=== PATIENT | male | born 1950 | race African-American/Black ===

== ENCOUNTER 2017-01-19 12:34 | Inpatient (IN) | payer OTHER, MEDICARE ==
[~2017-01-19] VITALS: Ht 167.6 cm; Wt 90.4 kg
[~2017-01-19 12:34] MED LIST: AMBIEN CR12.5 MG PO; AMOXICILLIN500 M1 PO; ASCORBIC ACID100 MG PO; ASCORBIC ACID500 M3 PO; ASPIRIN325 MG PO; B COMPLETE1 EACH PO; CALCIUM 500 MG1 EACH PO; CALCIUM600 M1 PO; CATAPRES0.1 MG PO; CEFTIN500 MG PO; CIPROFLOXACIN500 M1 PO; CLEAR EYES ITCH15 ML BOTH EYES; CYANOCOBALAM1000 MCG PO; CYCLOBENZAPRINE10 MG PO; DIAZEPAM5 MG PO; DOXAZOSIN MESYLA4 MG PO; DOXEPIN HCL50 MG PO; ENDOCET 5-3251 EACH PO; GABAPENTIN100 MG PO; GLUCOPHAGE500 MG PO; KENALOG,ARISTOC80 GM TP; LANTUS 10100 UNITS/ SC; LASIX20 MG PO; LASIX40 MG PO; LIPITOR20 MG PO; MINOXIDIL2.5 MG PO; MIRALAX255 GM PO; NORCO 5/3251 TABLET PO; NORCO 7.5/321 TABLET PO; NOVOLOG 10100 UNITS/ SC; ONE DAILY1 EAC3 PO; POTASSIUM-9999 MG PO; PREDNISONE1 MG PO; PREDNISONE20 MG PO; PREDNISONE5 MG PO; PRILOSEC20 MG PO; PROBIOTIC1 EAC1 PO; PROVENTIL HFA6.7 GM IH; PROVENTIL,2.5 MG/3 M IH; TAMSULOSIN HCL0.4 MG PO; VITAMIN B-1250 MG PO; VITAMIN D31000 UNI2 PO; VITAMIN D400 UNI1 PO; VITAMIN E100 UNIT PO
[2017-01-19 14:28] LABS: CHLORIDE 108 mEq/L (99-109); POTASSIUM 4.3 mEq/L (3.7-5.4); SODIUM 138 mEq/L (136-147)
[2017-01-19 14:30] LABS: GLUCOSE 192 mg/dL (70-99)
[2017-01-19 14:31] LABS: ANION GAP 10 MEQ/L (2-14)
[2017-01-19 14:33] LABS: ALKALINE PHOSPHATASE 352 IU/L (3-129)
[2017-01-19 14:34] LABS: GFR ESTIMATE (CALCULATED) > 59 mL/min/
[2017-01-19 14:35] LABS: UREA NITROGEN (BUN) 12 mg/dL (9-23)
[2017-01-19 14:37] LABS: LIPASE 11 U/L (1.0-51.0)
[2017-01-19 14:52] LABS: ADD MIUA? YES; BILIRUBIN NEGATIVE; BLOOD NEGATIVE; COLOR AMBER ((YELLOW)); GLUCOSE (STRIP) >=500; KETONES NEGATIVE; LEUKOCYTES NEGATIVE; NITRITE NEGATIVE; PROTEIN (STRIP) NEGATIVE; SPECIFIC GRAVITY 1.031 (1.000-1.030)
[2017-01-19 14:57] LABS: AMORPHOUS URATES CRYSTALS FEW; BACTERIA RARE /HPF; CASTS PRESENT /LPF; CRYSTALS PRESENT; EPITHELIAL CELLS NONE SEEN /HPF; HYALINE CASTS 0-5 /LPF; MUCUS TRACE /LPF; RED BLOOD CELLS 0-5 /HPF (0-5); UCUL ADDED? NO; WHITE BLOOD CELLS 0-5 /HPF (0-5)
[2017-01-19 15:03] LABS: EOSINOPHIL (%) 0.3 % (0-5); HEMATOCRIT 47.6 % (38.0-50.0); IMMATURE GRANULOCYTE (%) 0.4 % (0.0-0.7); LYMPHOCYTE COUNT 1.3 K/uL (1.0-2.8); MCH 30.1 PG (29.0-34.0); MCHC 33.6 G/DL (30.0-36.0); MCV 89.5 FL (86-99); MONOCYTE (%) 5.6 % (3-12); MONOCYTE COUNT 0.6 K/uL (0-0.8); NEUTROPHIL (%) 80.5 % (45-76); NEUTROPHIL COUNT 8.2 K/uL (1.8-6.4); RBC DIS.WIDTH-CV 17.1 % (11.8-14.6); RBC DIS.WIDTH-SD 55.9 % (39-53); RED BLOOD COUNT 5.32 M/uL (4.00-5.50); WHITE BLOOD COUNT 10.2 K/uL (4.1-10.2)
[2017-01-19 15:13] LABS: MEAN PLAT.VOLUME 13.7 uM^3 (9.0-12.4); PLAT.SUFFICIENCY ADEQUATE; PLATELET COUNT 176 K/uL (156-360); USER ID VLB
[2017-01-19] MEDS ORDERED: POTASSIUM-9999 MG PO (15:59)
[2017-01-19 19:30] VITALS: BP 123/62
[2017-01-19 21:53] LABS: POINT-OF-CARE METER ID UU13113725
[2017-01-20 00:01] VITALS: BP 127/67
[2017-01-20 02:44] VITALS: BP 133/72
[2017-01-20 06:09] LABS: POINT-OF-CARE METER ID UU13113725
[2017-01-20 06:43] LABS: ALKALINE PHOSPHATASE 260 IU/L (3-129); ANION GAP 9 MEQ/L (2-14); CHLORIDE 108 MEQ/L (99-109); GFR ESTIMATE (CALCULATED) > 59 mL/min/; POTASSIUM 4.1 MEQ/L (3.7-5.4); SAMPLE HEMOLYSIS CHECK 0; SAMPLE ICTERIC CHECK 1; SAMPLE LIPEMIA CHECK 0; SODIUM 139 MEQ/L (136-147); TOTAL BILIRUBIN 3.2 MG/DL (0.0-1.0); UREA NITROGEN (BUN) 12 mg/dL (9-23)
[2017-01-20 06:45] LABS: HEMATOCRIT 44.3 % (38.0-50.0); MCH 29.6 PG (29.0-34.0); MCV 89.7 FL (86-99); MEAN PLAT.VOLUME 13.6 uM^3 (9.0-12.4); PLATELET COUNT 160 K/uL (156-360); RBC DIS.WIDTH-CV 17.2 % (11.8-14.6); RBC DIS.WIDTH-SD 56.7 % (39-53); RED BLOOD COUNT 4.94 M/uL (4.00-5.50); WHITE BLOOD COUNT 9.2 K/uL (4.1-10.2)
[2017-01-20 06:47] LABS: GLUCOSE 107 mg/dL (70-99)
[2017-01-20 08:47] VITALS: BP 137/79
[2017-01-20 11:05] LABS: INTER. NORMALIZED RATIO 1.1; PROTHROMBIN TIME 11.5 (9.2-11.2)
[2017-01-20 11:19] VITALS: BP 123/69
[2017-01-20 11:22] LABS: SALICYLATE < 1.0 MG/DL (15-30)
[2017-01-20 11:55] LABS: INTERNAL CONTROL VALID? YES; MONOSPOT (MONONUCLEOSIS SEROL) NEGATIVE
[2017-01-20 13:02] LABS: IRON 181 MCG/DL (35-150)
[2017-01-20 13:35] LABS: FERRITIN 288 NG/ML (22-322)
[2017-01-20 17:05] VITALS: BP 127/66
[2017-01-20 20:07] VITALS: BP 127/75
[2017-01-21 03:45] VITALS: BP 131/74
[2017-01-21 06:40] LABS: ALKALINE PHOSPHATASE 273 IU/L (3-129); ANION GAP 6 MEQ/L (2-14); CHLORIDE 106 MEQ/L (99-109); GFR ESTIMATE (CALCULATED) > 59 mL/min/; POTASSIUM 4.3 MEQ/L (3.7-5.4); SAMPLE HEMOLYSIS CHECK 1; SAMPLE ICTERIC CHECK 0; SAMPLE LIPEMIA CHECK 0; SODIUM 133 MEQ/L (136-147); UREA NITROGEN (BUN) 15 mg/dL (9-23)
[2017-01-21 06:45] LABS: GLUCOSE 218 mg/dL (70-99); TOTAL BILIRUBIN 2.4 MG/DL (0.0-1.0)
[2017-01-21 08:04] VITALS: BP 112/70
[2017-01-21 11:09] LABS: HBSG INDEX 0.17
[2017-01-21 11:10] LABS: ANTI-HEPATITIS A VIRUS (IGM) Nonreactive; HAV INDEX 0.34; HPCA INDEX 12.87
[2017-01-21 11:11] LABS: ANTI-HEPATITIS B CORE (IGM) Nonreactive; HBC IgM INDEX 0.27
[2017-01-21 11:25] LABS: POINT-OF-CARE METER ID UU13113725
[2017-01-21 15:43] LABS: POINT-OF-CARE METER ID UU13113725
[2017-01-21 15:57] LABS: ADD MIUA? NO; BILIRUBIN NEGATIVE; BLOOD NEGATIVE; COLOR YELLOW ((YELLOW)); KETONES NEGATIVE; LEUKOCYTES NEGATIVE; NITRITE NEGATIVE; PROTEIN (STRIP) NEGATIVE; SPECIFIC GRAVITY 1.024 (1.000-1.030)
[2017-01-21 15:58] LABS: GLUCOSE (STRIP) 500
[2017-01-21 16:07] VITALS: BP 130/69
[2017-01-21 19:37] VITALS: BP 135/73
[2017-01-21 21:09] LABS: POINT-OF-CARE METER ID UU13113725
[2017-01-22 00:01] VITALS: BP 123/71
[2017-01-22 04:29] VITALS: BP 121/62
[2017-01-22 06:36] LABS: POINT-OF-CARE METER ID UU13113725
[2017-01-22 09:29] VITALS: BP 147/67
[2017-01-22 11:27] LABS: ANTI-NUCLEAR AB SCRN/RFLX(ANA) NONREACTIVE (NONREACTIVE)
[2017-01-22 11:30] LABS: POINT-OF-CARE METER ID UU13113725
[2017-01-22 12:30] VITALS: BP 146/83
[2017-01-22 14:58] LABS: POINT-OF-CARE METER ID UU13113675
[2017-01-22 16:29] VITALS: BP 120/64
[2017-01-22 22:52] VITALS: BP 127/77
[2017-01-23 08:29] VITALS: BP 120/70
[2017-01-23 09:36] LABS: ALKALINE PHOSPHATASE 265 IU/L (3-129); ANION GAP 9 MEQ/L (2-14); CHLORIDE 103 MEQ/L (99-109); GFR ESTIMATE (CALCULATED) > 59 mL/min/; GLUCOSE 159 mg/dL (70-99); POTASSIUM 3.9 MEQ/L (3.7-5.4); SAMPLE HEMOLYSIS CHECK 0; SAMPLE ICTERIC CHECK 0; SAMPLE LIPEMIA CHECK 0; SODIUM 137 MEQ/L (136-147); TOTAL BILIRUBIN 2.2 MG/DL (0.0-1.0); UREA NITROGEN (BUN) 14 mg/dL (9-23)
[2017-01-23 10:06] LABS: HEMATOCRIT 44.6 % (38.0-50.0); MCH 32.4 PG (29.0-34.0); MCV 92.5 FL (86-99); RBC DIS.WIDTH-CV 17.1 % (11.8-14.6); RBC DIS.WIDTH-SD 57.4 % (39-53); RED BLOOD COUNT 4.82 M/uL (4.00-5.50)
[2017-01-23 10:54] LABS: PLATELET COUNT UNABLE TO REPORT K/uL (156-360); WHITE BLOOD COUNT 14.4 K/uL (4.1-10.2)
[2017-01-23 16:16] VITALS: BP 134/69
[2017-01-23 22:57] VITALS: BP 147/63
[2017-01-24 08:18] VITALS: BP 123/74
[2017-01-24 08:43] VITALS: BP 123/74
[2017-01-24 09:50] LABS: ALKALINE PHOSPHATASE 242 IU/L (3-129); ANION GAP 8 MEQ/L (2-14); CHLORIDE 103 MEQ/L (99-109); GFR ESTIMATE (CALCULATED) > 59 mL/min/; GLUCOSE 227 mg/dL (70-99); POTASSIUM 3.9 MEQ/L (3.7-5.4); SAMPLE HEMOLYSIS CHECK 1; SAMPLE ICTERIC CHECK 0; SAMPLE LIPEMIA CHECK 0; SODIUM 136 MEQ/L (136-147); UREA NITROGEN (BUN) 14 mg/dL (9-23)
[2017-01-24 10:19] LABS: HEMATOCRIT 42.9 % (38.0-50.0); MCHC 33.6 G/DL (30.0-36.0); MCV 92.3 FL (86-99); RBC DIS.WIDTH-CV 16.5 % (11.8-14.6); RBC DIS.WIDTH-SD 55.3 % (39-53); RED BLOOD COUNT 4.65 M/uL (4.00-5.50); WHITE BLOOD COUNT 8.1 K/uL (4.1-10.2)
[2017-01-24 10:42] LABS: MEAN PLAT.VOLUME 13.2 uM^3 (9.0-12.4)
[2017-01-24 10:50] LABS: PLATELET COUNT 155 K/uL (156-360)
[2017-01-24] MEDS ORDERED: OXAYDO7.5 MG PO (13:58)
[2017-01-25 09:38] LABS: HCV RNA (LOG IU/mL) 6.36 (<1.18)
== END 2017-01-24 16:21 | disposition home health service (06) | DRG 442 ==
LOC: EME 12:34 → 5EAST 15:44 → EDOF 15:44 → 5EAST 17:32
PROVIDERS: Emergency Medicine; Hospitalist; Internal Medicine
DX: B19.20 Unspecified viral hepatitis C without hepatic coma (principal); J98.11 Atelectasis; R17 Unspecified jaundice; Z93.0 Tracheostomy status; R09.02 Hypoxemia; K44.9 Diaphragmatic hernia without obstruction or gangrene; K29.70 Gastritis, unspecified, without bleeding; E11.9 Type 2 diabetes mellitus without complications; M79.7 Fibromyalgia; I10 Essential (primary) hypertension; E78.5 Hyperlipidemia, unspecified; K21.9 Gastro-esophageal reflux disease without esophagitis; L93.0 Discoid lupus erythematosus; F41.9 Anxiety disorder, unspecified; E66.9 Obesity, unspecified; Z96.659 Presence of unspecified artificial knee joint; Z79.52 Long term (current) use of systemic steroids; Z88.5 Allergy status to narcotic agent; Z87.891 Personal history of nicotine dependence
CPT/HCPCS: 71010; 74181; 80053; 80074; 81003; 82140; 82728; 82948; 83540; 83690; 84466; 85025; 85027; 85610; 86038; 86256 90; 86308; 87522 90; 88305; 88342 TC; 94799; 99281; 99285; C1726; G0480; J0456; J0696; J1170; J1650; J1815; J2405; J7050; J7512

== ENCOUNTER → 2017-04-12 | Outpatient (CLI) | payer OTHER, MEDICARE ==
[~2017-04-12] VITALS: Ht 167.6 cm; Wt 90.7 kg
[~2017-04-12] MED LIST changes: +CARDURA4 MG PO; +CYMBALTA30 MG PO; +HARVONI 90-4001 EACH PO; +LONITEN2.5 MG PO; +NOVOLOG PE100 UNITS/ SC; +OXAYDO7.5 MG PO; +TRAZODONE HCL50 MG PO
[2017-04-12 08:40] LABS: POINT-OF-CARE METER ID UU13113694
[2017-04-12 10:39] LABS: POINT-OF-CARE METER ID UU13113819
== END | disposition home or self-care (01) ==
LOC: AMB 07:43
PROVIDERS: Internal Medicine Gastroenterology
PROC: 0F904ZX Drainage of Liver, Percutaneous Endoscopic Approach, Diagnostic (ICD-10-PCS; principal; 2017-04-12)
DX: B18.2 Chronic viral hepatitis C (principal); K44.9 Diaphragmatic hernia without obstruction or gangrene; R10.11 Right upper quadrant pain; R10.13 Epigastric pain; E11.40 Type 2 diabetes mellitus with diabetic neuropathy, unspecified; I10 Essential (primary) hypertension; E78.5 Hyperlipidemia, unspecified; E66.9 Obesity, unspecified; M32.9 Systemic lupus erythematosus, unspecified; Z84.1 Family history of disorders of kidney and ureter; Z82.69 Family history of other diseases of the musculoskeletal system and connective tissue; Z96.659 Presence of unspecified artificial knee joint; Z87.891 Personal history of nicotine dependence; Z68.31 Body mass index [BMI] 31.0-31.9, adult; Z79.4 Long term (current) use of insulin; Z88.8 Allergy status to other drugs, medicaments and biological substances; Z88.5 Allergy status to narcotic agent; Z91.013 Allergy to seafood
CPT/HCPCS: 82948; 88307; 88313; 93005; C1726; J2250

== ENCOUNTER 2017-05-06 09:15 | Emergency (ER) | payer OTHER, MEDICARE ==
[~2017-05-06] VITALS: Ht 167.6 cm; Wt 96.2 kg
[2017-05-06 10:01] LABS: EOSINOPHIL (%) 2.1 % (0-5); EOSINOPHIL COUNT 0.2 K/uL (0-0.3); HEMATOCRIT 44.6 % (38.0-50.0); IMMATURE GRANULOCYTE (%) 0.6 % (0.0-0.7); IMMATURE GRANULOCYTE COUNT 0.1 K/uL; INSTRUMENT ABS NEUTROPHIL CT 3.8 K/uL; LYMPHOCYTE COUNT 3.7 K/uL (1.0-2.8); MCH 30.5 PG (29.0-34.0); MCHC 33.4 G/DL (30.0-36.0); MCV 91.4 FL (86-99); MEAN PLAT.VOLUME 11.8 uM^3 (9.0-12.4); MONOCYTE (%) 9.5 % (3-12); MONOCYTE COUNT 0.8 K/uL (0-0.8); NEUTROPHIL (%) 44.7 % (45-76); NEUTROPHIL COUNT 3.8 K/uL (1.8-6.4); PLATELET COUNT 153 K/uL (156-360); RBC DIS.WIDTH-CV 13.4 % (11.8-14.6); RBC DIS.WIDTH-SD 45.3 % (39-53); RED BLOOD COUNT 4.88 M/uL (4.00-5.50); WHITE BLOOD COUNT 8.6 K/uL (4.1-10.2)
[2017-05-06 10:11] LABS: CHLORIDE 108 mEq/L (99-109); SODIUM 135 mEq/L (136-147)
[2017-05-06 10:12] LABS: GLUCOSE 271 mg/dL (70-99)
[2017-05-06 10:14] LABS: ANION GAP 8 MEQ/L (2-14)
[2017-05-06 10:16] LABS: GFR ESTIMATE (CALCULATED) > 59 mL/min/
[2017-05-06 10:17] LABS: UREA NITROGEN (BUN) 9 mg/dL (9-23)
[2017-05-06 11:57] LABS: AMYLASE 244 IU/L (1-118)
[2017-05-06 12:07] LABS: ADD MIUA? NO; BILIRUBIN NEGATIVE; BLOOD NEGATIVE; COLOR YELLOW ((YELLOW)); GLUCOSE (STRIP) >=500; KETONES NEGATIVE; LEUKOCYTES NEGATIVE; NITRITE NEGATIVE; PROTEIN (STRIP) NEGATIVE; SPECIFIC GRAVITY 1.022 (1.000-1.030); UROBILINOGEN 0.2 MG/DL (0.2-1.0)
[2017-05-06 14:44] VITALS: BP 133/80
== END 2017-05-06 14:45 | disposition home or self-care (01) ==
LOC: EME 09:15
PROVIDERS: Emergency Medicine
DX: R47.02 Dysphasia (principal); E11.9 Type 2 diabetes mellitus without complications; M79.7 Fibromyalgia; E78.5 Hyperlipidemia, unspecified; I10 Essential (primary) hypertension; K21.9 Gastro-esophageal reflux disease without esophagitis; M32.9 Systemic lupus erythematosus, unspecified; Z96.653 Presence of artificial knee joint, bilateral; Z87.891 Personal history of nicotine dependence; Z79.4 Long term (current) use of insulin
CPT/HCPCS: 70491; 80048; 81003; 82150; 85025; 99281; 99285; J7030

== ENCOUNTER 2017-05-11 12:00 | Inpatient (IN) | payer OTHER, MEDICARE ==
[~2017-05-11] VITALS: Ht 167.6 cm; Wt 103.5 kg
[2017-05-11 13:05] LABS: ADD MIUA? NO; BILIRUBIN NEGATIVE; BLOOD NEGATIVE; COLOR YELLOW ((YELLOW)); GLUCOSE (STRIP) >=500; KETONES NEGATIVE; LEUKOCYTES NEGATIVE; NITRITE NEGATIVE; PROTEIN (STRIP) NEGATIVE; SPECIFIC GRAVITY 1.016 (1.000-1.030); UCUL ADDED? NO
[2017-05-11 13:45] LABS: HEMATOCRIT 47.3 % (38.0-50.0); MCH 30.5 PG (29.0-34.0); MCHC 33.2 G/DL (30.0-36.0); RBC DIS.WIDTH-CV 13.2 % (11.8-14.6); RED BLOOD COUNT 5.14 M/uL (4.00-5.50)
[2017-05-11 13:54] LABS: CHLORIDE 107 mEq/L (99-109); POTASSIUM 4.6 mEq/L (3.7-5.4); SODIUM 140 mEq/L (136-147)
[2017-05-11 13:56] LABS: GLUCOSE 140 mg/dL (70-99)
[2017-05-11 13:58] LABS: ANION GAP 9 MEQ/L (2-14); TOTAL BILIRUBIN 0.4 mg/dL (0.0-1.0)
[2017-05-11 14:00] LABS: ALKALINE PHOSPHATASE 82 IU/L (3-129); GFR ESTIMATE (CALCULATED) > 59 mL/min/
[2017-05-11 14:01] LABS: UREA NITROGEN (BUN) 13 mg/dL (9-23)
[2017-05-11 14:03] LABS: LIPASE 9 U/L (1.0-51.0)
[2017-05-11 14:25] LABS: MEAN PLAT.VOLUME 11.7 uM^3 (9.0-12.4); PLAT.SUFFICIENCY ADEQUATE; PLATELET COUNT 168 K/uL (156-360)
[2017-05-11 15:38] LABS: AMYLASE 96 IU/L (1-118)
[2017-05-11 15:51] LABS: TROP-I INTERPRETATION NEGATIVE; TROPONIN-I < 0.01 ng/mL (0.0-0.30)
[2017-05-11] MEDS ORDERED: KENALOG,ARISTOC80 G1 TP (17:14)
[2017-05-11] MEDS ORDERED: BUPROPION XL150 MG PO (17:14)
[2017-05-11] MEDS ORDERED: KETOCONAZOLE120 ML TP (17:15)
[2017-05-11 18:59] LABS: INTER. NORMALIZED RATIO 1.1; PROTHROMBIN TIME 11.4 (9.2-11.2)
[2017-05-11 20:20] VITALS: BP 137/74
[2017-05-11 21:29] LABS: POINT-OF-CARE METER ID UU14188577
[2017-05-11 23:03] VITALS: BP 138/83
[2017-05-12 03:20] VITALS: BP 147/82
[2017-05-12 03:31] LABS: METH RESISTANT S AUREUS PCR NEGATIVE (NEGATIVE)
[2017-05-12 03:33] LABS: PROBE CHECK PASS; SPECIMEN PROCESSING CONTROL PASS
[2017-05-12 07:00] LABS: ANION GAP 9 MEQ/L (2-14); CHLORIDE 108 MEQ/L (99-109); SAMPLE HEMOLYSIS CHECK 0; SAMPLE ICTERIC CHECK 0; SAMPLE LIPEMIA CHECK 0; SODIUM 140 MEQ/L (136-147)
[2017-05-12 07:01] LABS: POTASSIUM 3.5 MEQ/L (3.7-5.4)
[2017-05-12 07:06] LABS: GFR ESTIMATE (CALCULATED) > 59 mL/min/; UREA NITROGEN (BUN) 10 mg/dL (9-23)
[2017-05-12 07:08] LABS: EOSINOPHIL (%) 3.6 % (0-5); EOSINOPHIL COUNT 0.3 K/uL (0-0.3); IMMATURE GRANULOCYTE (%) 0.2 % (0.0-0.7); INSTRUMENT ABS NEUTROPHIL CT 3.8 K/uL; LYMPHOCYTE COUNT 3.7 K/uL (1.0-2.8); MCH 31.5 PG (29.0-34.0); MCHC 33.7 G/DL (30.0-36.0); MCV 93.6 FL (86-99); MEAN PLAT.VOLUME 11.3 uM^3 (9.0-12.4); MONOCYTE (%) 10.1 % (3-12); MONOCYTE COUNT 0.9 K/uL (0-0.8); NEUTROPHIL (%) 43.7 % (45-76); NEUTROPHIL COUNT 3.8 K/uL (1.8-6.4); PLATELET COUNT 154 K/uL (156-360); RBC DIS.WIDTH-CV 13.5 % (11.8-14.6); RBC DIS.WIDTH-SD 46.5 % (39-53); RED BLOOD COUNT 4.38 M/uL (4.00-5.50); WHITE BLOOD COUNT 8.7 K/uL (4.1-10.2)
[2017-05-12 07:10] LABS: ALKALINE PHOSPHATASE 65 IU/L (3-129); ANION GAP 10 MEQ/L (2-14); CHLORIDE 108 MEQ/L (99-109); GFR ESTIMATE (CALCULATED) > 59 mL/min/; POTASSIUM 3.6 MEQ/L (3.7-5.4); SAMPLE HEMOLYSIS CHECK 0; SAMPLE ICTERIC CHECK 0; SAMPLE LIPEMIA CHECK 0; SODIUM 141 MEQ/L (136-147); TOTAL BILIRUBIN 0.5 MG/DL (0.0-1.0); UREA NITROGEN (BUN) 11 mg/dL (9-23)
[2017-05-12 07:11] LABS: GLUCOSE 80 mg/dL (70-99); GLUCOSE 81 mg/dL (70-99)
[2017-05-12 07:21] LABS: POINT-OF-CARE METER ID UU14188577
[2017-05-12 08:25] VITALS: BP 146/69
[2017-05-12 11:41] VITALS: BP 132/83
[2017-05-12 12:13] LABS: POINT-OF-CARE METER ID UU14149397
[2017-05-12 16:10] VITALS: BP 139/83
[2017-05-12 17:07] LABS: POINT-OF-CARE METER ID UU14149397
[2017-05-12 19:56] VITALS: BP 148/81
[2017-05-12 22:04] LABS: POINT-OF-CARE METER ID UU14149397
[2017-05-12 23:33] VITALS: BP 152/79
[2017-05-13 03:27] VITALS: BP 129/70
[2017-05-13 06:15] LABS: EOSINOPHIL (%) 2.9 % (0-5); EOSINOPHIL COUNT 0.3 K/uL (0-0.3); HEMATOCRIT 42.4 % (38.0-50.0); IMMATURE GRANULOCYTE (%) 0.4 % (0.0-0.7); INSTRUMENT ABS NEUTROPHIL CT 5.4 K/uL; MCH 31.4 PG (29.0-34.0); MCHC 33.3 G/DL (30.0-36.0); MCV 94.4 FL (86-99); MEAN PLAT.VOLUME 11.8 uM^3 (9.0-12.4); MONOCYTE (%) 9.9 % (3-12); NEUTROPHIL (%) 55.5 % (45-76); NEUTROPHIL COUNT 5.4 K/uL (1.8-6.4); PLATELET COUNT 118 K/uL (156-360); RBC DIS.WIDTH-CV 13.7 % (11.8-14.6); RBC DIS.WIDTH-SD 47.3 % (39-53); RED BLOOD COUNT 4.49 M/uL (4.00-5.50); WHITE BLOOD COUNT 9.7 K/uL (4.1-10.2)
[2017-05-13 06:43] LABS: ALKALINE PHOSPHATASE 69 IU/L (3-129); ANION GAP 9 MEQ/L (2-14); CHLORIDE 108 MEQ/L (99-109); GFR ESTIMATE (CALCULATED) > 59 mL/min/; SAMPLE HEMOLYSIS CHECK 1; SAMPLE ICTERIC CHECK 0; SAMPLE LIPEMIA CHECK 0; SODIUM 141 MEQ/L (136-147); TOTAL BILIRUBIN 0.5 MG/DL (0.0-1.0); UREA NITROGEN (BUN) 8 mg/dL (9-23)
[2017-05-13 06:51] LABS: GLUCOSE 48 mg/dL (70-99)
[2017-05-13 07:08] LABS: POINT-OF-CARE METER ID UU14149397
[2017-05-13 07:39] LABS: POINT-OF-CARE METER ID UU14149397
[2017-05-13 08:16] VITALS: BP 141/83
[2017-05-13 16:02] VITALS: BP 161/89
[2017-05-13 19:31] VITALS: BP 170/84
[2017-05-13 21:55] LABS: POINT-OF-CARE METER ID UU14188577
[2017-05-13 23:53] VITALS: BP 137/75
[2017-05-14 06:41] LABS: POINT-OF-CARE METER ID UU14149397
[2017-05-14 08:15] VITALS: BP 121/69
[2017-05-14 16:13] VITALS: BP 134/76
[2017-05-14 16:58] LABS: POINT-OF-CARE METER ID UU14149397
[2017-05-14 22:08] LABS: POINT-OF-CARE METER ID UU14149397
[2017-05-14 23:55] VITALS: BP 136/70
[2017-05-15 06:40] LABS: POINT-OF-CARE METER ID UU14149397
[2017-05-15 08:15] VITALS: BP 165/84
[2017-05-15 09:04] LABS: MCH 30.6 PG (29.0-34.0); MCHC 32.5 G/DL (30.0-36.0); MCV 94.1 FL (86-99); PLATELET COUNT 119 K/uL (156-360); RBC DIS.WIDTH-CV 13.3 % (11.8-14.6); RBC DIS.WIDTH-SD 45.5 % (39-53); RED BLOOD COUNT 4.25 M/uL (4.00-5.50); WHITE BLOOD COUNT 7.4 K/uL (4.1-10.2)
[2017-05-15 09:31] LABS: ANION GAP 7 MEQ/L (2-14); CHLORIDE 106 MEQ/L (99-109); GFR ESTIMATE (CALCULATED) > 59 mL/min/; POTASSIUM 3.9 MEQ/L (3.7-5.4); SAMPLE HEMOLYSIS CHECK 0; SAMPLE ICTERIC CHECK 0; SAMPLE LIPEMIA CHECK 0; SODIUM 139 MEQ/L (136-147); UREA NITROGEN (BUN) 5 mg/dL (9-23)
[2017-05-15 09:32] LABS: GLUCOSE 142 mg/dL (70-99)
[2017-05-15 11:40] LABS: POINT-OF-CARE METER ID UU14149397
[2017-05-15 16:29] VITALS: BP 167/81
[2017-05-15 17:38] LABS: POINT-OF-CARE METER ID UU14149397
[2017-05-15 17:51] VITALS: BP 120/78
[2017-05-15 21:41] LABS: POINT-OF-CARE METER ID UU14149397
[2017-05-16 03:44] VITALS: BP 146/78
[2017-05-16 06:39] LABS: POINT-OF-CARE METER ID UU14188577
[2017-05-16 07:00] VITALS: BP 145/74
[2017-05-16 07:12] LABS: HEMATOCRIT 41.1 % (38.0-50.0); MCH 31.7 PG (29.0-34.0); MCHC 33.8 G/DL (30.0-36.0); MCV 93.6 FL (86-99); MEAN PLAT.VOLUME 12.1 uM^3 (9.0-12.4); NRBC (%) 0.3 /100 WBC (0-0); PLATELET COUNT 146 K/uL (156-360); RBC DIS.WIDTH-CV 13.6 % (11.8-14.6); RBC DIS.WIDTH-SD 46.1 % (39-53); RED BLOOD COUNT 4.39 M/uL (4.00-5.50); WHITE BLOOD COUNT 7.9 K/uL (4.1-10.2)
[2017-05-16 07:38] LABS: ANION GAP 7 MEQ/L (2-14); CHLORIDE 105 MEQ/L (99-109); GFR ESTIMATE (CALCULATED) > 59 mL/min/; GLUCOSE 112 mg/dL (70-99); POTASSIUM 4.5 MEQ/L (3.7-5.4); SAMPLE HEMOLYSIS CHECK 1; SAMPLE ICTERIC CHECK 0; SAMPLE LIPEMIA CHECK 0; SODIUM 139 MEQ/L (136-147); UREA NITROGEN (BUN) 6 mg/dL (9-23)
[2017-05-16 11:09] LABS: POINT-OF-CARE METER ID UU14188577
[2017-05-16 14:10] LABS: C DIFF TOXIN NEGATIVE (NEGATIVE); PROBE CHECK PASS; SPECIMEN PROCESSING CONTROL PASS
[2017-05-16 14:47] VITALS: BP 162/80
[2017-05-16 16:07] LABS: POINT-OF-CARE METER ID UU14188577
[2017-05-16 21:54] LABS: POINT-OF-CARE METER ID UU14188577
[2017-05-16 23:52] VITALS: BP 133/74
[2017-05-17 06:51] LABS: POINT-OF-CARE METER ID UU14188577
[2017-05-17 07:45] VITALS: BP 132/65
[2017-05-17] MEDS ORDERED: CIPROFLOXACIN500 M1 PO (11:33)
[2017-05-17] MEDS ORDERED: METRONIDAZOLE500 MG PO (11:34)
== END 2017-05-17 13:30 | disposition home or self-care (01) | DRG 392 ==
LOC: EME 12:00 → 3EAST 17:37 → EDOF 17:37 → 3EAST 17:37
PROVIDERS: Hospitalist; Internal Medicine; Physician Assistant; Physician Assistant Medical; Surgery
DX: K57.20 Diverticulitis of large intestine with perforation and abscess without bleeding (principal); Z93.0 Tracheostomy status; Z86.74 Personal history of sudden cardiac arrest; M32.9 Systemic lupus erythematosus, unspecified; B19.20 Unspecified viral hepatitis C without hepatic coma; E11.9 Type 2 diabetes mellitus without complications; E78.00 Pure hypercholesterolemia, unspecified; E78.5 Hyperlipidemia, unspecified; F32.9 Major depressive disorder, single episode, unspecified; G47.30 Sleep apnea, unspecified; I10 Essential (primary) hypertension; J98.11 Atelectasis; K21.9 Gastro-esophageal reflux disease without esophagitis; K44.9 Diaphragmatic hernia without obstruction or gangrene; K59.00 Constipation, unspecified; M79.7 Fibromyalgia; N40.0 Benign prostatic hyperplasia without lower urinary tract symptoms; Z79.4 Long term (current) use of insulin; Z79.52 Long term (current) use of systemic steroids; Z87.891 Personal history of nicotine dependence; Z96.611 Presence of right artificial shoulder joint; Z96.652 Presence of left artificial knee joint; F41.9 Anxiety disorder, unspecified; M25.50 Pain in unspecified joint; M79.606 Pain in leg, unspecified; R11.10 Vomiting, unspecified
CPT/HCPCS: 71020; 74177; 80048; 80053; 81003; 82150; 82948; 83605; 83690; 84484; 85025; 85027; 85610; 85730; 87493; 87641; 94640; 94760; 94799; 99202; 99281; 99285; J0744; J1170; J1644; J1815; J1885; J2405; J3480; J7030; J7512; S0028; S0030

== ENCOUNTER 2017-10-05 11:53 | Emergency (ER) | payer OTHER, MEDICARE ==
[~2017-10-05] VITALS: Ht 167.6 cm; Wt 80.3 kg
[~2017-10-05 11:53] MED LIST changes: +BUPROPION XL150 MG PO; +KENALOG,ARISTOC80 G1 TP; +KETOCONAZOLE120 ML TP; +METRONIDAZOLE500 MG PO
[2017-10-05 16:00] VITALS: BP 137/82
== END 2017-10-05 17:27 | disposition left against medical advice (07) ==
LOC: EME 11:53
DX: T82.9XXA Unspecified complication of cardiac and vascular prosthetic device, implant and graft, initial encounter (principal); Z98.890 Other specified postprocedural states; Z90.49 Acquired absence of other specified parts of digestive tract; Z93.2 Ileostomy status; R00.0 Tachycardia, unspecified; I10 Essential (primary) hypertension; E78.5 Hyperlipidemia, unspecified; E11.9 Type 2 diabetes mellitus without complications; Z79.4 Long term (current) use of insulin; Z79.52 Long term (current) use of systemic steroids; Z87.891 Personal history of nicotine dependence
CPT/HCPCS: 99281; 99285

== ENCOUNTER 2017-10-26 10:39 | Inpatient (IN) | payer OTHER, MEDICARE ==
[~2017-10-26] VITALS: Ht 167.6 cm; Wt 81.8 kg
[2017-10-26 12:14] LABS: EOSINOPHIL (%) 2.1 % (0-5); EOSINOPHIL COUNT 0.2 K/uL (0-0.3); HEMATOCRIT 32.1 % (38.0-50.0); IMMATURE GRANULOCYTE (%) 0.3 % (0.0-0.7); INSTRUMENT ABS NEUTROPHIL CT 5.9 K/uL; LYMPHOCYTE COUNT 2.1 K/uL (1.0-2.8); MCH 26.7 PG (29.0-34.0); MCHC 31.2 G/DL (30.0-36.0); MCV 85.8 FL (86-99); MEAN PLAT.VOLUME 11.4 uM^3 (9.0-12.4); MONOCYTE (%) 10.4 % (3-12); NEUTROPHIL (%) 64.1 % (45-76); NEUTROPHIL COUNT 5.9 K/uL (1.8-6.4); PLATELET COUNT 233 K/uL (156-360); RBC DIS.WIDTH-CV 14.3 % (11.8-14.6); RBC DIS.WIDTH-SD 44.7 % (39-53); RED BLOOD COUNT 3.74 M/uL (4.00-5.50); WHITE BLOOD COUNT 9.3 K/uL (4.1-10.2)
[2017-10-26 12:22] LABS: CHLORIDE 107 mEq/L (99-109); POTASSIUM 4.2 mEq/L (3.7-5.4); SODIUM 138 mEq/L (136-147)
[2017-10-26 12:23] LABS: INTER. NORMALIZED RATIO 1.5; PROTHROMBIN TIME 17.4 SEC (10.2-12.9)
[2017-10-26 12:24] LABS: GLUCOSE 320 mg/dL (70-99)
[2017-10-26 12:26] LABS: PTT 33.5 SEC (25-37)
[2017-10-26 12:26] LABS: ANION GAP 11 MEQ/L (2-14); TOTAL BILIRUBIN 0.4 mg/dL (0.0-1.0)
[2017-10-26 12:28] LABS: ALKALINE PHOSPHATASE 84 IU/L (3-129); GFR ESTIMATE (CALCULATED) > 59 mL/min/
[2017-10-26 12:29] LABS: UREA NITROGEN (BUN) 10 mg/dL (9-23)
[2017-10-26 13:32] LABS: ADD MIUA? NO; BILIRUBIN NEGATIVE; BLOOD NEGATIVE; COLOR YELLOW ((YELLOW)); GLUCOSE (STRIP) >=500; KETONES NEGATIVE; LEUKOCYTES NEGATIVE; NITRITE NEGATIVE; PROTEIN (STRIP) NEGATIVE; SPECIFIC GRAVITY 1.032 (1.000-1.030); UCUL ADDED? NO; UROBILINOGEN 0.2 MG/DL (0.2-1.0)
[2017-10-26] MEDS ORDERED: GABAPENTIN300 MG PO (16:13)
[2017-10-26] MEDS ORDERED: AMOX TR-K CLV1 EAC4 PO (16:13)
[2017-10-26] MEDS ORDERED: LEVETIRACETAM500 M1 PO (16:14)
[2017-10-26] MEDS ORDERED: XARELTO20 MG PO (16:16)
[2017-10-26] MEDS ORDERED: ONDANSETRON ODT4 MG PO (16:16)
[2017-10-26] MEDS ORDERED: OXYCODONE HCL5 MG PO (16:17)
[2017-10-26] MEDS ORDERED: VIMPAT200 MG PO (16:18)
[2017-10-26] MEDS ORDERED: SUMATRIPTAN SU100 MG PO (16:18)
[2017-10-26] MEDS ORDERED: LORAZEPAM1 MG PO (16:19)
[2017-10-26] MEDS ORDERED: DULOXETINE HCL30 MG PO (16:20)
[2017-10-26] MEDS ORDERED: CLONIDINE HCL0.1 MG PO (16:20)
[2017-10-26] MEDS ORDERED: HYDROMORPHONE HC2 MG PO (16:21)
[2017-10-26 16:34] LABS: HDL CHOLESTEROL 39 MG/DL (Desirable>=40); LDL CHOLESTEROL 77 mg/dL (Desirable<100); NON-HDL CHOLESTEROL 108 mg/dL (Desirable<160); SAMPLE HEMOLYSIS CHECK 0; SAMPLE ICTERIC CHECK 0; SAMPLE LIPEMIA CHECK 0; TOTAL CHOLESTEROL 147 mg/dL (Desirable<200); TRIGLYCERIDES 156 MG/DL (Normal: <150)
[2017-10-26 16:36] LABS: TROP-I INTERPRETATION NEGATIVE; TROPONIN-I < 0.01 ng/mL (0.0-0.30)
[2017-10-26 18:14] LABS: Estimated Average Glucose 169 mg/dL (70-123); HEMOGLOBIN A1c (GLYCOHEMOGLOB) 7.5 % HGB (Below 5.7)
[2017-10-26 19:45] VITALS: BP 109/75
[2017-10-26 20:54] VITALS: BP 115/76
[2017-10-26 22:51] LABS: TROP-I INTERPRETATION NEGATIVE; TROPONIN-I < 0.01 ng/mL (0.0-0.30)
[2017-10-26 23:55] VITALS: BP 111/72
[2017-10-27 00:30] LABS: POINT-OF-CARE METER ID UU14174225; POINT-OF-CARE USER ID BHSKTD
[2017-10-27 03:51] VITALS: BP 120/78
[2017-10-27 04:34] LABS: TROP-I INTERPRETATION NEGATIVE; TROPONIN-I < 0.01 ng/mL (0.0-0.30)
[2017-10-27 07:45] VITALS: BP 134/82
[2017-10-27 07:48] LABS: POINT-OF-CARE METER ID UU13113717
[2017-10-27 11:43] VITALS: BP 134/80
[2017-10-27 12:07] LABS: POINT-OF-CARE METER ID UU13113717
[2017-10-27 16:54] VITALS: BP 144/88
[2017-10-27 17:16] LABS: POINT-OF-CARE METER ID UU14174225
[2017-10-27 19:25] VITALS: BP 130/79
[2017-10-27 21:55] LABS: POINT-OF-CARE METER ID UU13113717
[2017-10-27 23:31] VITALS: BP 123/64
[2017-10-28 03:43] VITALS: BP 121/71
[2017-10-28 08:17] LABS: POINT-OF-CARE METER ID UU13113717
[2017-10-28 08:23] VITALS: BP 138/7; BP 138/71
[2017-10-28 09:55] LABS: EOSINOPHIL (%) 1.9 % (0-5); EOSINOPHIL COUNT 0.3 K/uL (0-0.3); HEMATOCRIT 33.3 % (38.0-50.0); IMMATURE GRANULOCYTE (%) 0.4 % (0.0-0.7); IMMATURE GRANULOCYTE COUNT 0.1 K/uL; INSTRUMENT ABS NEUTROPHIL CT 8.7 K/uL; LYMPHOCYTE COUNT 2.7 K/uL (1.0-2.8); MCH 26.5 PG (29.0-34.0); MCHC 31.2 G/DL (30.0-36.0); MCV 84.9 FL (86-99); MEAN PLAT.VOLUME 11.4 uM^3 (9.0-12.4); MONOCYTE (%) 9.3 % (3-12); MONOCYTE COUNT 1.2 K/uL (0-0.8); NEUTROPHIL (%) 67.6 % (45-76); NEUTROPHIL COUNT 8.7 K/uL (1.8-6.4); PLATELET COUNT 247 K/uL (156-360); RBC DIS.WIDTH-SD 43.8 % (39-53); RED BLOOD COUNT 3.92 M/uL (4.00-5.50)
[2017-10-28 10:18] LABS: ANION GAP 8 MEQ/L (2-14); CHLORIDE 105 MEQ/L (99-109); GFR ESTIMATE (CALCULATED) > 59 mL/min/; GLUCOSE 238 mg/dL (70-99); POTASSIUM 4.1 MEQ/L (3.7-5.4); SAMPLE HEMOLYSIS CHECK 0; SAMPLE ICTERIC CHECK 0; SAMPLE LIPEMIA CHECK 0; SODIUM 134 MEQ/L (136-147); UREA NITROGEN (BUN) 13 mg/dL (9-23)
[2017-10-28 12:19] VITALS: BP 116/72
[2017-10-28 12:28] LABS: POINT-OF-CARE METER ID UU13113717
[2017-10-28 15:54] VITALS: BP 120/76
[2017-10-28 17:03] LABS: POINT-OF-CARE METER ID UU13113717
[2017-10-28 19:18] VITALS: BP 128/78
[2017-10-28 21:38] LABS: POINT-OF-CARE METER ID UU14174225
[2017-10-29] VITALS: BP 129/73
[2017-10-29 03:51] VITALS: BP 122/69
[2017-10-29 06:57] LABS: POINT-OF-CARE METER ID UU14174225
[2017-10-29 07:26] VITALS: BP 118/80
[2017-10-29] MEDS ORDERED: OXYCODONE HCL5 MG PO (10:28)
== END 2017-10-29 12:15 | disposition home health service (06) | DRG 552 ==
LOC: EME 10:39 → 5SOUTH 15:26 → EDOF 15:26 → ENRESERV 15:28 → 5SOUTH 20:51
PROVIDERS: Emergency Medicine; Internal Medicine
DX: M47.26 Other spondylosis with radiculopathy, lumbar region (principal); S06.0X9A Concussion with loss of consciousness of unspecified duration, initial encounter; M48.061 Spinal stenosis, lumbar region without neurogenic claudication; Z86.718 Personal history of other venous thrombosis and embolism; E11.51 Type 2 diabetes mellitus with diabetic peripheral angiopathy without gangrene; M32.9 Systemic lupus erythematosus, unspecified; M79.7 Fibromyalgia; Y92.000 Kitchen of unspecified non-institutional (private) residence as the place of occurrence of the external cause; W01.0XXA Fall on same level from slipping, tripping and stumbling without subsequent striking against object, initial encounter; M50.30 Other cervical disc degeneration, unspecified cervical region; K21.9 Gastro-esophageal reflux disease without esophagitis; E78.5 Hyperlipidemia, unspecified; I10 Essential (primary) hypertension; M51.34 Other intervertebral disc degeneration, thoracic region; G89.29 Other chronic pain; Z86.711 Personal history of pulmonary embolism; Z68.29 Body mass index [BMI] 29.0-29.9, adult; Z79.01 Long term (current) use of anticoagulants; Z93.0 Tracheostomy status; Z87.891 Personal history of nicotine dependence; Z96.611 Presence of right artificial shoulder joint; Z96.652 Presence of left artificial knee joint
CPT/HCPCS: 70450; 70551; 71010; 72070; 72100; 72125; 72148; 73502; 80048; 80053; 80061; 81003; 82948; 83036; 84484; 85025; 85610; 85730; 93005; 93880; 99281; 99285; J1815; J7512

== ENCOUNTER 2018-02-06 13:26 | Emergency (ER) | payer OTHER, MEDICARE ==
[~2018-02-06] VITALS: Ht 165.1 cm; Wt 85.4 kg
[~2018-02-06 13:26] MED LIST changes: +AMOX TR-K CLV1 EAC4 PO; +CLONIDINE HCL0.1 MG PO; +DULOXETINE HCL30 MG PO; +GABAPENTIN300 MG PO; +HYDROMORPHONE HC2 MG PO; +LEVETIRACETAM500 M1 PO; +LORAZEPAM1 MG PO; +ONDANSETRON ODT4 MG PO; +OXYCODONE HCL5 MG PO; +SUMATRIPTAN SU100 MG PO; +VIMPAT200 MG PO; +XARELTO20 MG PO
[2018-02-06 15:27] LABS: HEMATOCRIT 29.3 % (38.0-50.0); MCH 24.5 PG (29.0-34.0); MCHC 30.7 G/DL (30.0-36.0); MCV 79.6 FL (86-99); PLATELET COUNT 332 K/uL (156-360); RBC DIS.WIDTH-CV 19.2 % (11.8-14.6); RBC DIS.WIDTH-SD 55.6 % (39-53); RED BLOOD COUNT 3.68 M/uL (4.00-5.50); WHITE BLOOD COUNT 13.2 K/uL (4.1-10.2)
[2018-02-06 15:35] LABS: INTER. NORMALIZED RATIO 1.3
[2018-02-06 15:38] LABS: PTT 34.9 SEC (25-37)
[2018-02-06 15:42] LABS: ALBUMIN 3.6 g/dL (3.2-4.8)
[2018-02-06 15:43] LABS: CHLORIDE 106 mEq/L (99-109); SODIUM 139 mEq/L (136-147)
[2018-02-06 15:44] LABS: POTASSIUM 4.5 mEq/L (3.7-5.4)
[2018-02-06 15:45] LABS: GLUCOSE 136 mg/dL (70-99); TOTAL PROTEIN 7.9 g/dL (6.4-8.3)
[2018-02-06 15:47] LABS: TOTAL BILIRUBIN 0.2 mg/dL (0.0-1.0)
[2018-02-06 15:48] LABS: ALKALINE PHOSPHATASE 82 IU/L (3-129)
[2018-02-06 15:49] LABS: CREATININE 0.9 mg/dL (0.6-1.3); GFR ESTIMATE (CALCULATED) > 59 mL/min/ (58.99-99999)
[2018-02-06 15:50] LABS: AST (GOT) 13 IU/L (2-34); UREA NITROGEN (BUN) 9 mg/dL (9-23)
[2018-02-06 15:51] LABS: ALT (GPT) 7 IU/L (3-49)
[2018-02-06 15:52] LABS: LIPASE 8 U/L (1.0-51.0)
[2018-02-06 15:58] LABS: TROP-I INTERPRETATION NEGATIVE; TROPONIN-I < 0.01 ng/mL (0.0-0.30)
[2018-02-06] MEDS ORDERED: OXYCODONE HCL10 MG PO (17:19)
[2018-02-06 18:01] VITALS: BP 134/76
== END 2018-02-06 18:25 | disposition home or self-care (01) ==
LOC: EME 13:26
PROVIDERS: Emergency Medicine
DX: S22.32XA Fracture of one rib, left side, initial encounter for closed fracture (principal); D64.9 Anemia, unspecified; Z98.890 Other specified postprocedural states; W19.XXXA Unspecified fall, initial encounter; I10 Essential (primary) hypertension; E78.5 Hyperlipidemia, unspecified; E11.9 Type 2 diabetes mellitus without complications; M79.7 Fibromyalgia; M32.9 Systemic lupus erythematosus, unspecified; K21.9 Gastro-esophageal reflux disease without esophagitis; F32.9 Major depressive disorder, single episode, unspecified; Z87.891 Personal history of nicotine dependence; Z96.652 Presence of left artificial knee joint; Z96.611 Presence of right artificial shoulder joint; Z79.4 Long term (current) use of insulin; Z88.5 Allergy status to narcotic agent; Z88.8 Allergy status to other drugs, medicaments and biological substances
CPT/HCPCS: 71260; 74177; 80053; 83690; 84484; 85027; 85610; 85730; 93005; 99281; 99285; J3010; J7030

== ENCOUNTER 2018-07-18 19:38 | Emergency (ER) | payer OTHER, MEDICARE ==
[~2018-07-18] VITALS: Ht 162.6 cm; Wt 92.8 kg
[~2018-07-18 19:38] MED LIST changes: +OXYCODONE HCL10 MG PO
[2018-07-18 21:26] VITALS: BP 166/88
== END 2018-07-18 21:27 | disposition home or self-care (01) ==
LOC: EME 19:38
DX: M25.512 Pain in left shoulder (principal); Z91.81 History of falling; Z98.890 Other specified postprocedural states; Z88.5 Allergy status to narcotic agent; Z88.8 Allergy status to other drugs, medicaments and biological substances
CPT/HCPCS: 73030; 99281; 99283